=== PATIENT | female | born 1985 | race Hispanic/Latino ===

== ENCOUNTER 2024-01-29 09:18 | Day surgery (SDC) | payer OTHER ==
[2024-01-29] VITALS (11 sets, daily range): BP systolic 101–136; BP diastolic 60–78; PULSE 62–84; RESP 14–17
[~2024-01-29] VITALS: Ht 157.5 cm; Wt 85.3 kg
[~2024-01-29 09:18] MED LIST: ANASTROZOLE PO
[2024-01-29] MEDS: 0.9%NACL 1000ML 1,000 ML IV ONE (12:01)
[2024-01-29] MEDS ORDERED: proPOFol 10 MG/ML 20ML VIAL IV ONE ×2 (14:07→14:10)
== END 2024-01-29 15:40 | disposition home or self-care (01) ==
LOC: DAH 09:18 → ENDO 09:18
PROVIDERS: ATTEND Internal Medicine
DX: Z12.11 Encounter for screening for malignant neoplasm of colon (principal); D12.5 Benign neoplasm of sigmoid colon; K64.0 First degree hemorrhoids; Z80.0 Family history of malignant neoplasm of digestive organs; Z85.3 Personal history of malignant neoplasm of breast; Z90.49 Acquired absence of other specified parts of digestive tract; Z90.710 Acquired absence of both cervix and uterus; Z79.899 Other long term (current) drug therapy
CPT/HCPCS: 45380; J7030 ×2; J2704 ×2; A4620; A4215; A4223; A7002; A4222; A4221; A4663; A4606; J3490